=== PATIENT | female | born 1935 | race Asian ===

== ENCOUNTER → 2016-12-03 | Outpatient (CLI) | payer MEDICARE, MEDICAID | END | disposition home or self-care (01) | LOC: RADPV 08:34 | PROVIDERS: ATTEND Internal Medicine | DX: E04.2 Nontoxic multinodular goiter (principal); Z90.89 Acquired absence of other organs | CPT/HCPCS: 76536 ==

== ENCOUNTER → 2016-12-30 | Outpatient (CLI) | payer MEDICARE, OTHER, MEDICAID | END | disposition home or self-care (01) | LOC: RADPV 09:32 | PROVIDERS: ATTEND Internal Medicine | DX: M19.041 Primary osteoarthritis, right hand (principal); M19.042 Primary osteoarthritis, left hand; M75.81 Other shoulder lesions, right shoulder; M21.941 Unspecified acquired deformity of hand, right hand; M85.811 Other specified disorders of bone density and structure, right shoulder; M19.011 Primary osteoarthritis, right shoulder ==

== ENCOUNTER → 2017-03-11 | Outpatient (CLI) | payer MEDICARE, OTHER, MEDICAID | END | disposition home or self-care (01) | LOC: RADPV 10:26 | PROVIDERS: ATTEND Internal Medicine | DX: I70.0 Atherosclerosis of aorta (principal) | CPT/HCPCS: 71020 ==

== ENCOUNTER → 2017-04-05 | Outpatient (CLI) | payer MEDICARE, MEDICAID | END | disposition home or self-care (01) | LOC: RADPV 09:37 | PROVIDERS: ATTEND Internal Medicine | DX: M41.82 Other forms of scoliosis, cervical region (principal); M41.86 Other forms of scoliosis, lumbar region; M47.812 Spondylosis without myelopathy or radiculopathy, cervical region; M47.816 Spondylosis without myelopathy or radiculopathy, lumbar region; R31.9 Hematuria, unspecified; Z85.79 Personal history of other malignant neoplasms of lymphoid, hematopoietic and related tissues | CPT/HCPCS: 76770; 77075 ==

== ENCOUNTER 2017-07-17 03:15 | Emergency (ER) | payer MEDICARE, OTHER ==
[~2017-07-17] VITALS: Ht 142.2 cm; Wt 53.6 kg
[2017-07-17 03:27] LABS: GLUCOSE,POINT OF CARE 145 MG/DL (70-110)
[2017-07-17] MEDS ORDERED: ALLO300 PO (03:31)
[2017-07-17] MEDS ORDERED: ISOS5TAB5 PO (03:31)
[2017-07-17] MEDS ORDERED: METF500T4 PO (03:31)
[2017-07-17] MEDS ORDERED: HYDR25TA84 PO (03:31)
[2017-07-17] MEDS ORDERED: FURO20 PO (03:31)
[2017-07-17] MEDS ORDERED: PRED5 PO (03:31)
[2017-07-17] MEDS ORDERED: LOSA50TA37 PO (03:31)
[2017-07-17] MEDS ORDERED: ATOR10TA84 PO (03:31)
[2017-07-17] MEDS ORDERED: MORPHINE SULFATE 2 MG/ML SYRINGE IVP ONE (04:45)
[2017-07-17] MEDS ORDERED: MORPHINE SULFATE 4 MG/ML SYRINGE IVP ONE (04:45)
[2017-07-17] MEDS ORDERED: ONDANSETRON HCL 4 MG/2 ML VIAL IVP ONE (04:45)
[2017-07-17 04:54] LABS: BASOPHILS % (AUTO) 0.2 % (0.0-2.0); EOSINOPHILS % (AUTO) 0.6 % (1.0-6.0); HEMATOCRIT 46.1 % (36-46); HEMOGLOBIN 15.3 g/dL (12.0-16.0); LYMPHOCYTES # (AUTO) 0.8 K/uL (1.0-4.8); LYMPHOCYTES % (AUTO) 9.7 % (22.0-44.0); MEAN CORPUSCULAR HEMOGLOBIN 26.6 pg (26.0-34.0); MEAN CORPUSCULAR HGB CONC 33.3 G/dL (31.0-37.0); MEAN CORPUSCULAR VOLUME 80 fL (80-100); MONOCYTES # (AUTO) 0.3 K/uL (0.1-1.0); MONOCYTES % (AUTO) 3.6 % (2.0-9.0); NEUTROPHILS # (AUTO) 7.3 K/uL (1.8-7.7); PLATELET COUNT (AUTO) 157 K/uL (150-450); RED BLOOD CELL COUNT(AUTO) 5.76 MIL/uL (4.00-5.20)
[2017-07-17 04:55] LABS: NEUTROPHILS % (AUTO) 85.9 % (40.0-70.0)
[2017-07-17 04:59] LABS: CALCIUM, TOTAL 9.5 mg/dL (8.8-10.5); CREATININE 1.11 mg/dL (0.60-1.30); POTASSIUM 3.7 mmol/L (3.5-5.1)
[2017-07-17 05:13] LABS: ALBUMIN 3.9 g/dL (3.4-5.0); BILIRUBIN,TOTAL 0.8 mg/dL (0.1-1.0); TOTAL PROTEIN, SERUM 7.9 g/dL (6.4-8.2)
[2017-07-17] MEDS ORDERED: SODIUM CHLORIDE 0.9% 500 ML IV ONE (05:45)
[2017-07-17] MEDS ORDERED: KETOROLAC TROMETHAMINE 30 MG/ML VIAL IVP ONE (06:45)
[2017-07-17] MEDS ORDERED: MethylPREDNISolone SOD SUCC 125 MG/2 ML VIAL IVP ONE (07:15)
[2017-07-17 09:06] LABS: APPEARANCE,URINE CLOUDY (CLEAR); BILIRUBIN,URINE NEGATIVE (NEGATIVE); GLUCOSE, URINE (UA) NEGATIVE (NEGATIVE); KETONES,URINE NEGATIVE (NEGATIVE); LEUKOCYTE ESTERASE ,URINE SMALL (NEGATIVE); NITRATE,URINE NEGATIVE (NEGATIVE); OCCULT BLOOD,URINE NEGATIVE (NEGATIVE); PROTEIN,URINE TRACE (NEGATIVE); UROBILINOGEN,URINE 0.2 mg/dL (<=1.0)
[2017-07-17 09:10] VITALS: BP 154/86
[2017-07-17 09:12] LABS: BACTERIA,URINE Few /HPF (None Seen)
[2017-07-17 09:14] LABS: SQUAMOUS EPITHELIAL CELL,UR Few /LPF (None Seen)
== END 2017-07-17 09:57 | disposition home or self-care (01) ==
LOC: EMS 03:16
DX: R51 Headache (principal); I10 Essential (primary) hypertension; N39.0 Urinary tract infection, site not specified; R05 Cough; M79.1 Myalgia; I11.0 Hypertensive heart disease with heart failure; I50.9 Heart failure, unspecified; E11.9 Type 2 diabetes mellitus without complications; E78.00 Pure hypercholesterolemia, unspecified; M19.90 Unspecified osteoarthritis, unspecified site; Z79.4 Long term (current) use of insulin; Z79.899 Other long term (current) drug therapy
CPT/HCPCS: 36415; 70450; 71045; 80053; 81001; 82962; 83880; 84484; 85025; 87077; 87086; 87186; 93005; 96361; 96374; 96375; 99285; J1885; J2270; J2405; J2930; J7040